=== PATIENT | female | born 1955 | race Caucasian/White ===

== ENCOUNTER 2017-03-27 16:40 | Emergency (ER) | payer BC ==
[2017-03-27 16:50] VITALS: BP 121/75
--- NOTE | 2017-03-27 18:01 | UC ---
Chriss Solares Alfonso, scribed for Kvng Potts MD on 03/27/17 at 1658 . Head Injury HPI - HPI Summary HPI Summary: This patient is a 61 year old F presenting to [facility] accompanied by daughter with a chief complaint of a head injury at 1545 today. She reports falling down while going to put a glass jar on a shelf. She was home alone and called her daughter who states she has had 2 previous falls of unknown cause in 2015 and 2016. Daughter reports she does not realize she is falling so does not catch herself. The patient rates the pain 7/10 in severity. Symptoms aggravated by nothing. Patient reports headache, abrasions at both knees. Patient denies nausea, vomiting, neck pain, back pain, LOC, speech change, extremity numbness, and unsteady gait. She denies taking blood thinning medication. PMHx of a heart murmur. Medications reviewed. Allergies reviewed. - History Of Current Complaint Chief Complaint: UCHeadInjury Stated Complaint: HEAD INJURY Time Seen by Provider: 03/27/17 16:54 Hx Obtained From: Patient Onset/Duration: Sudden Onset, Lasting Minutes - 1545 today, Still Present Severity Currently: Moderate Severity Initially: Moderate Pain Intensity: 7 Pain Scale Used: 0-10 Numeric Associated Signs And Symptoms: Positive: Other - headache, abrasions at both knees. Patient denies nausea, vomiting, neck pain, back pain, LOC, speech change , extremity numbness, and unsteady gait. - Allergies/Home Medications Allergies/Adverse Reactions: Allergies Allergy/AdvReac Type Severity Reaction Status Date / Time No Known Allergies Allergy Verified 03/27/17 16:52 Home Medications: Home Medications Calcium W/ Vitamins D & K [Calcium + D 500-1000-40 [place] [place] 03/27/17 [ History] Cholecalciferol [Vitamin D] 03/27/17 [History] Multiple Vitamin [Multi Vitamin] 03/27/17 [History] PMH/Surg Hx/FS Hx/Imm Hx Other Cardiovascular History: Cardiac disorder - Surgical History Surgical History: None - Family History Known Family History: Positive: Other - aneurysm father at 45. - Social History Alcohol Use: None Substance Use Type: None Smoking Status (MU): Never Smoked Tobacco Review of Systems Skin: Other - abrasions at both knees Gastrointestinal: Other - Negative N/V. Musculoskeletal: Other: - Negative neck pain, back pain. Neurological: Other - head injury, headache; negative LOC, speech change, extremity numbness, and unsteady gait. All Other Systems Reviewed And Are Negative: Yes Physical Exam Triage Information Reviewed: Yes Appearance: Well-Appearing, No Pain Distress Vital Signs: Initial Vital Signs Temp 98.9 F 03/27/17 16:45 Pulse 68 03/27/17 16:45 Resp 12 03/27/17 16:45 BP 121/75 03/27/17 16:45 Pulse Ox 99 03/27/17 16:45 Vital Signs Reviewed: Yes Eyes: Positive: Other: - PAULO EOMI ENT: Positive: Normal ENT inspection Neck: Positive: Supple, Nontender Respiratory: Positive: Lungs clear, Normal breath sounds Cardiovascular: Positive: RRR Abdomen Description: Positive: Nontender, Soft Bowel Sounds: Positive: Present Musculoskeletal: Positive: Strength Intact, ROM Intact, Other: - Swelling over the left upper orbit. No laceration. Ecchymosis on the left check. No tenderness to palpation or obvious deformity. Neurological: Positive: Alert, Other: - GSC 15. Legs have good strength and reflexes. Psychological: Positive: Age Appropriate Behavior Skin: Positive: Other - warm, color reflects adequate perfusion, dry. Knees have superficial lacerations. Head Injury Course/Dx - Course Course Of Treatment: PATIENT/PATIENT'S FAMILY REPORT THE PATIENT'S PMD WISHES TO HAVE BLOOD WORK DONE IF SHE FELL AGAIN. I DISCUSSED THIS WITH THE DR CANDY ROLLER FOR PATIENT'S PMD. LABS ORDERED. PATIENT WILL F/U WITH PMD. DISCUSSED GETTING HEAD CT WITH PATIENT AND HER FAMILY ( AND DAUGHTER); NO LOC, NO NEUROLOGIC DEFICIT, PAIN/MOODY MINIMAL, NOT ON BLOOD THINNER. NO HEAD CT AT THIS TIME. I INFORMED THEM TO GO TO THE ED IF ANY WORSENING OF HER CONDITION OR QUESTIONS OR CONCERNS AND TO GET A HEAD CT AT THAT TIME IF INDICATED. - Differential Dx/Diagnosis Provider Diagnoses: HEAD INJURY AND B/L KNEE CONTUSION S/P FALL. Discharge - Discharge Plan Condition: Stable Disposition: HOME Patient Education Materials: Head Injury (ED), Contusion in Adults (ED) Referrals: Chen Fletcher MD [Medical Doctor] - Additional Instructions: FOLLOW UP WITH YOUR DOCTOR. GO TO THE EMERGENCY DEPARTMENT FOR ANY WORSENING OF YOUR CONDITION; PAIN, WEAKNESS, NUMBNESS, CHANGE IN VISION OR SPEECH, YOU FEEL ILL, VOMITING, YOU FEEL LIKE PASSING OUT OR QUESTIONS OR CONCERNS. The documentation as recorded by the Chriss cabrera Alfonso accurately reflects the service I personally performed and the decisions made by me, Kvng Potts MD.
[2017-03-28 14:34] LABS: Hematocrit 43 % (35-47); Hemoglobin 14.3 g/dl (12.0-16.0); Mean Corpuscular HGB Conc 34 g/dl (31-36); Mean Corpuscular Hemoglobin 29 pg (27-31); Mean Corpuscular Volume 87 fL (80-97); Mean Platelet Volume 10 um3 (7.4-10.4); Red Blood Count 4.89 10^6/ul (4.0-5.4); Red Cell Distribution Width 13 % (10.5-15); White Blood Count 6.2 10^3/ul (3.5-10.8)
[2017-03-28 14:57] LABS: Albumin 4.7 g/dL (3.2-5.2); BUN/Creatinine Ratio 32.1 (8-20); C Reactive Protein 1.03 mg/L (< 5.00); Calcium 10.7 mg/dL (8.6-10.3); EGFR African American 150.8 (>60); EGFR Non-African American 117.3 (>60); Globulin 2.5 g/dL (2-4); Magnesium 2.1 mg/dL (1.9-2.7); Total Bilirubin 1.3 mg/dL (0.2-1.0); Total Protein 7.2 g/dL (6.4-8.9)
[2017-03-28 15:01] LABS: TSH (Thyroid Stimulating Horm) 2.05 mcIU/mL (0.34-5.60)
== END 2017-03-27 18:15 | disposition home or self-care (01) ==
LOC: EDUNIT# → UCEAST 16:40
DX: S09.90XA Unspecified injury of head, initial encounter (principal); S80.02XA Contusion of left knee, initial encounter; S80.01XA Contusion of right knee, initial encounter; W19.XXXA Unspecified fall, initial encounter
CPT/HCPCS: 36415; 80053; 83735; 84443; 85025; 85610; 86140; 99201; G0463

== ENCOUNTER 2018-05-10 17:59 | Emergency (ER) | payer BC ==
[2018-05-10 18:35] VITALS: BP 122/79
--- NOTE | 2018-05-10 18:47 | UC ---
UC General HPI - HPI Summary HPI Summary: 62 yo female c/o one day urgency, frequency, dysuria, hematuria. No fever. A little unwell. No n/v/d. No rash. No hx recent uti. A little back pain. No sob / cp / palpitations. - History of Current Complaint Chief Complaint: UCGU Stated Complaint: UTI Time Seen by Provider: 05/10/18 18:45 Hx Obtained From: Patient Pain Intensity: 4 - Allergy/Home Medications Allergies/Adverse Reactions: Allergies Allergy/AdvReac Type Severity Reaction Status Date / Time bee venom protein (honey bee) Allergy Severe Difficulty Verified 05/10/18 18:35 Breathing PMH/Surg Hx/FS Hx/Imm Hx Previously Healthy: Yes - Surgical History Surgical History: None Surgery Procedure, Year, and Place: D&C - Family History Known Family History: Positive: Hypertension, Other - aneurysm father at 45. - Social History Alcohol Use: None Alcohol Amount: WINE Substance Use Type: None Smoking Status (MU): Never Smoked Tobacco Review of Systems Constitutional: Fatigue Skin: Negative Eyes: Negative ENT: Negative Cardiovascular: Negative Gastrointestinal: Other - see hpi Genitourinary: Other - see hpi Motor: Negative Neurovascular: Negative Musculoskeletal: Negative Neurological: Negative Psychological: Negative Is Patient Immunocompromised?: No All Other Systems Reviewed And Are Negative: Yes Physical Exam Triage Information Reviewed: Yes Appearance: Well-Nourished Vital Signs: Initial Vital Signs Temp 99.6 F 05/10/18 18:31 Pulse 81 05/10/18 18:31 Resp 16 05/10/18 18:31 BP 122/79 05/10/18 18:31 Pulse Ox 99 05/10/18 18:31 Vital Signs Reviewed: Yes Eye Exam: Normal - grossly normal ENT Exam: Normal - grossly normal Neck exam: Normal - no c/o Respiratory Exam: Normal - no tachypnea, no dyspnea, rr normal Cardiovascular Exam: Normal - nondiaphoretic. HR normal. Good general color. Abdominal Exam: Other - Mild tender mid low pelvic region, mild left flank / cva tenderness. Abdomen Description: Positive: Soft Bowel Sounds: Positive: Present Musculoskeletal Exam: Normal - moves x 4 ext's, gait steady. Neurological Exam: Normal, Other - grossly nonfocal Psychological Exam: Normal - conversing easily and appropriately. Skin Exam: Normal Course/Dx - Course Course Of Treatment: Reviewed urine dip, including + blood. D/w pt, reviewed coa / tx plan. Diff dx includes albeit not limited to uti / cystitis / pyelonephritis. C/n exclude stone, but doubt. F/u PCP. Seek medical attention worse or new problems. - Differential Dx - Multi-Symptom Provider Diagnoses: UTI. hematuria Discharge - Sign-Out/Discharge Documenting (check all that apply): Patient Departure All imaging exams completed and their final reports reviewed: No Studies - Discharge Plan Condition: Stable Disposition: HOME Prescriptions: Ciprofloxacin TAB* [Cipro 500 MG TAB*] 500 mg PO BID #14 tab Phenazopyridine 200 mg (NF) [Pyridium 200 MG tab *] 200 mg PO Q8H PRN #12 tab PRN Reason: Pain Patient Education Materials: Urinary Tract Infection in Women (DC), Hematuria ( ED) Forms: *Work Release Referrals: Chen Fletcher MD [Medical Doctor] - Additional Instructions: Please follow up with your primary care physician, within the next 2-4 weeks for urine recheck, to ensure that blood has resolved. Please seek medical attention for worse or new problems. Drink plenty of water. - Billing Disposition and Condition Condition: STABLE Disposition: Home
== END 2018-05-10 19:10 | disposition home or self-care (01) ==
LOC: UCEAST 17:59
DX: N39.0 Urinary tract infection, site not specified (principal); R31.9 Hematuria, unspecified; R53.83 Other fatigue; Z91.030 Bee allergy status
CPT/HCPCS: 81003; 87077; 87086; 87186; 99212; G0463

== ENCOUNTER 2019-08-29 07:48 | Emergency (ER) | payer SELFPAY ==
--- NOTE | 2019-08-29 08:08 | UC ---
General HPI - HPI Summary HPI Summary: RN notes - Pt was at work, tripped on an object and fell forward onto co-worker's knee. Pt states nose hit directly on co-worker's knee. Pt states felt dizzy momentarily but now feels tired, with a headache. Pleasant 63 yo female c/o face and nose pain s/p t/f this am approx 7am at work. Tripped over something and fell face first onto coworker's knee. No loc. No vis / aud changes. Lots of nose bleeding. No neck pain, no p/d/w. No chest /abd / distal pain. Recalls event. Presents with pipeliner. Took acetaminophen approx 5am d/t h/a, which had improved by the time of event. Hurts now. - History of Current Complaint Stated Complaint: NOSE INJURY Time Seen by Provider: 08/29/19 07:53 Hx Obtained From: Patient - Allergy/Home Medications Allergies/Adverse Reactions: Allergies Allergy/AdvReac Type Severity Reaction Status Date / Time bee venom protein (honey bee) Allergy Severe Difficulty Verified 08/29/19 08:03 Breathing Home Medications: Home Medications Acetaminophen [Tylenol] 650 mg PO ONCE 08/29/19 [History Confirmed 08/29/19] PMH/Surg Hx/FS Hx/Imm Hx Previously Healthy: Yes - Surgical History Surgical History: None Surgery Procedure, Year, and Place: D&C - Family History Known Family History: Positive: Hypertension, Other - aneurysm father at 45. - Social History Alcohol Use: None Alcohol Amount: WINE Substance Use Type: None Smoking Status (MU): Never Smoked Tobacco Review of Systems All Other Systems Reviewed And Are Negative: Yes Constitutional: Positive: Negative Skin: Positive: Other - see hpi Eyes: Positive: Negative ENT: Positive: Other - see hpi Respiratory: Positive: Negative Cardiovascular: Positive: Negative Gastrointestinal: Positive: Negative Genitourinary: Positive: Negative Motor: Positive: Other - see hpi Neurovascular: Positive: Negative Musculoskeletal: Positive: Other: - see hpi Neurological: Positive: Other - see hpi Psychological: Positive: Negative Is Patient Immunocompromised?: No Physical Exam Triage Information Reviewed: Yes Appearance: Well-Nourished - lying down, but able to sit up and walk steadily Vital Signs Reviewed: Yes Eye Exam: Normal ENT: Positive: Other - TM's clear + bruising and swelling over face and nose. + tender nose. Dried red blood in both nares. Blood on clothes. PERRLA EOMI SW / CP. No double vision. Sees blurry at expected finger distance approsx 5-6 inches. No neck tenderness. No septal hematoma identified. Neck exam: Normal Neck: Positive: Supple, Nontender, No Lymphadenopathy Respiratory Exam: Normal Respiratory: Positive: Chest non-tender, Lungs clear, Normal breath sounds, No respiratory distress, No accessory muscle use Cardiovascular Exam: Normal, Other - + syst murmur (pt reports this is known) Cardiovascular: Positive: RRR, Pulses Normal, Brisk Capillary Refill Abdominal Exam: Normal Abdomen Description: Positive: Nontender Musculoskeletal Exam: Normal Musculoskeletal: Positive: Strength Intact Neurological Exam: Normal Psychological Exam: Normal - nad Skin Exam: Normal - nondiaphoretic. See face / ent exam Course/Dx - Course Course Of Treatment: CT facial bones reviewed report with pt - see [employer]. - netative for maxillofacial fracture - soft tissue swelling over the bridge of the nose and at the RIGHT nasolabial fold, haritha eminence, and inferior preseptal Right orbital region. Reviewed coa / tx plan . Questions as posed answered to the best of my ability. - Diagnoses Provider Diagnosis: Injury of nose, Facial contusion, Bloody nose Discharge ED - Discharge Plan Referrals: Chen Fletcher MD [Primary Care Provider] -
[2019-08-29 08:12] VITALS: BP 133/65
== END 2019-08-29 11:15 | disposition home or self-care (01) ==
LOC: UCEAST 07:48
DX: S00.33XA Contusion of nose, initial encounter (principal); S09.92XA Unspecified injury of nose, initial encounter; R04.0 Epistaxis; M79.89 Other specified soft tissue disorders; Z91.030 Bee allergy status; W01.198A Fall on same level from slipping, tripping and stumbling with subsequent striking against other object, initial encounter; Y92.9 Unspecified place or not applicable; Y99.0 Civilian activity done for income or pay
CPT/HCPCS: 70486; 99201; G0463

== ENCOUNTER 2020-03-28 06:59 | Inpatient (IN) ==
[2020-03-28] MEDS ORDERED: NS 0.9% 1000 ml BAG 1,000 ML IV ONE (07:03)
[2020-03-28 07:27] LABS: ABS Eosinophils 0.1 10^3/ul (0-0.6); ABS Lymphocytes 1.1 10^3/ul (1.0-4.8); ABS Monocytes 0.3 10^3/ul (0-0.8); ABS Neutrophils 2.3 10^3/ul (1.5-7.7); Eosinophil % 1.5 %; Hematocrit 41 % (35-47); Hemoglobin 14.1 g/dL (12.0-16.0); Lymphocyte % 28.9 %; Mean Corpuscular HGB Conc 34 g/dL (31-36); Mean Corpuscular Hemoglobin 30 pg (27-31); Mean Corpuscular Volume 87 fL (80-97); Mean Platelet Volume 9.3 fL (7.4-10.4); Platelet Count 171 10^3/uL (150-450); Red Blood Count 4.76 10^6 /uL (3.70-4.87); Red Cell Distribution Width 13 % (10-15); White Blood Count 3.7 10^3/uL (3.5-10.8)
[2020-03-28 07:45] LABS: ALT 16 U/L (7-52); AST 20 U/L (13-39); Albumin 4.6 g/dL (3.2-5.2); Albumin/Globulin Ratio 1.7 (1-3); Alkaline Phosphatase 55 U/L (34-104); Anion Gap 6 mmol/L (2-11); BUN/Creatinine Ratio 24.1 (8-20); Blood Urea Nitrogen 13 mg/dL (6-24); CO2 Carbon Dioxide 28 mmol/L (22-32); Calcium 9.8 mg/dL (8.6-10.3); Chloride 107 mmol/L (101-111); EGFR African American 137.5 (>60); EGFR Non-African American 113.7 (>60); Globulin 2.7 g/dL (2-4); Glucose 96 mg/dL (70-100); Potassium 3.8 mmol/L (3.5-5.0); Sodium 141 mmol/L (135-145); Total Protein 7.3 g/dL (6.4-8.9)
[2020-03-28 08:13] LABS: Alcohol, S < 10 mg/dL (<10); Salicylate < 2.50 mg/dL (<30)
[2020-03-28 08:28] LABS: TSH Ultra Thyroid Stim Horm 1.38 mcIU/mL (0.34-5.60)
[2020-03-28] MEDS ORDERED: Ondansetron 4 mg VIAL 2 MG/ML 2 ml VIAL IV PRN (10:28)
[2020-03-28 10:33] LABS: Acetaminophen < 15 mcg/mL
[2020-03-28] MEDS ORDERED: Senna TAB 8.6 mg TAB PO PRN (11:12)
[2020-03-28] MEDS ORDERED: Albuterol HFA INHALER 8 gm MDI INH PRN (11:26)
[2020-03-28] MEDS ORDERED: Enoxaparin 40 MG/0.4 ML SYR SUBCUT SCH (12:00)
[2020-03-28] MEDS ORDERED: Gadoteridol (CONTRAST) 279.3 MG/ML 10 ML IV ONE (14:40)
[2020-03-28] MEDS ORDERED: Iohexol 350 (CONTRAST) 500 ML MDV IV ONE (17:34)
[2020-03-28 17:52] LABS: Vitamin B12 260 pg/mL (180-914)
[2020-03-28 18:02] LABS: Urine Appearance Clear; Urine Bilirubin Negative (Negative); Urine Blood Negative (Negative); Urine Color Straw; Urine Glucose Negative (Negative); Urine Ketones Negative (Negative); Urine Nitrite Negative (Negative); Urine Protein Negative (Negative); Urine Specific Gravity 1.011 (1.010-1.030); Urine Urobilinogen Negative (Negative)
[2020-03-28 18:06] LABS: Urine Benzodiazepine Screen None Detected (None Detect); Urine Cannabinoids Screen None Detected (None Detect); Urine Opiates Screen None Detected (None Detect)
[2020-03-28] MEDS: Aspirin EC 81 mg TAB.EC (enteric coated) PO SCH ×2 (18:14→18:20)
[2020-03-28] MEDS ORDERED: Aspirin EC 81 mg TAB.EC (enteric coated) ONE (18:19)
[2020-03-29 07:13] LABS: BUN/Creatinine Ratio 27.8 (8-20); Blood Urea Nitrogen 15 mg/dL (6-24); CO2 Carbon Dioxide 26 mmol/L (22-32); Calcium 9.6 mg/dL (8.6-10.3); Chloride 109 mmol/L (101-111); Cholesterol 170 mg/dL; EGFR African American 137.5 (>60); EGFR Non-African American 113.7 (>60); Glucose 93 mg/dL (70-100); HDL Cholesterol 61.7 mg/dL; LDL Cholesterol 92 mg/dL; Sodium 140 mmol/L (135-145); Triglycerides 81 mg/dL
[2020-03-29 08:01] LABS: Anion Gap 5 mmol/L (2-11)
[2020-03-29] MEDS: Aspirin EC 81 mg TAB.EC (enteric coated) PO SCH (08:24)
[2020-03-29] MEDS ORDERED: Vitamin THERAPEUTIC TAB PO SCH (09:00)
[2020-03-29] MEDS ORDERED: NS 0.9% 500 ml BAG 500 ML IV ONE (10:28)
[2020-03-29] MEDS ORDERED: Cyanocobalamin INJ 1,000 MCG/ML VIAL 1 ML VIAL IM ONE (15:02)
[2020-03-29 15:48] VITALS: BP 126/76
== END 2020-03-29 17:38 | disposition home or self-care (01) | DRG 45 ==
LOC: ED 06:59 → MEDTELE 06:59
PROVIDERS: ADMIT Internal Medicine; ATTEND Internal Medicine